=== PATIENT | female | born 1985 | race Caucasian/White ===

== ENCOUNTER 2016-05-12 14:38 | Emergency (ER) | payer MEDICAID ==
[~2016-05-12] VITALS: Wt 60.0 kg
[~2016-05-12 14:38] MED LIST: IBUP800T25 PO; LAB200 PO; PERCOCET PO; PREN1TAB49 PO
[2016-05-12] MEDS ORDERED: HYDROCHLOROTHIAZIDE 25 MG TAB PO ONE (18:00)
--- NOTE | 2016-05-12 18:35 | RADRPT ---
PROCEDURE: CT Brain without. CLINICAL INDICATION: Headache, hypertension. TECHNIQUE: A CT of the brain was performed on multidetector high-resolution CT scanner utilizing a xial sections from the skull base through the vertex without contrast. The scan was reviewed in sof t tissue brain and high frequency resolution bone algorithm windows. Images were reviewed on a high -resolution PACS workstation. One or more the following does reduction techniques were utilized: Aut omated exposure control, adjustment of the mA/ or kV according to patient's size, or use of iterativ e reconstruction technique. The exam CTDI = 39.64, 2.44 mGy and the DLP = 559.84 mGy-cm. COMPARISON: None available. FINDINGS: The ventricles and sulci are age-appropriate. There is no intracranial hemorrhage, mass effect or mi dline shift. No abnormal intra-axial or extra-axial fluid collections are seen. The smith/white amara er differentiation is preserved. No acute skull abnormality is noted. The visualized paranasal sinus es are essentially clear. IMPRESSION: 1. No acute intracranial hemorrhage, transcortical infarction or mass effect. RPTAT: AA .Carlos Sanders MD, MD Date Time Electronically viewed and signed by .Carlos Sanders MD, MD on 05/12/2016 18:35 .N/
[2016-05-12] MEDS ORDERED: HYD25 PO (19:03)
[2016-05-12] MEDS ORDERED: NAPR-260 PO (19:03)
[2016-05-12] MEDS ORDERED: LABE100T3 PO (19:03)
--- NOTE | 2016-05-12 19:07 | ERD ---
ER Documentation Chief Complaint Date/Time DATE: 05/12/16 TIME: 19:05 Chief Complaint HEADACHE FOR THE PAST DAY. HIGH BP, NO BP MEDS FOR 1 DAY. NO NEURO DEF HPI 31-year-old woman referred here by clinic for hypertension. Patient has a long history of hypertension and states she has been off of her antihypertensives for a few months. She has had a headache for about 1 week which she states she has been gradual onset and similar previous episodes. She denies any focal deficits, no paresis or paresthesias, no weakness in her arms or legs, no slurred speech, no blurry vision. Patient denies fevers or chills, no chest pain or shortness of breath. ROS All systems reviewed and are negative except as per history of present illness. Medications Home Meds Active Scripts Labetalol Hcl* (Labetalol Hcl*) 100 Mg Tablet, 100 MG PO BID, #60 TAB Prov:ASHLEY BARTHOLOMEW MD 05/12/16 Hydrochlorothiazide* (Hydrochlorothiazide*) 25 Mg Tab, 25 MG PO DAILY, #30 TAB Prov:ASHLEY BARTHOLOMEW MD 05/12/16 Naproxen* (Naprosyn*) 500 Mg Tablet, 500 MG PO BID Y for PAIN AND/OR INFLAMMATION, #30 TAB Prov:ASHLEY BARTHOLOMEW MD 05/12/16 Discontinued Reported Medications Vits W-Ca,Fe,Fa(<1MG) () 1 Tab Tablet, 1 TAB PO DAILY 02/19/12 Discontinued Scripts Oxycodone Hcl/Acetaminophen (Percocet) 1 Tab Tab, 2 TAB PO Q4H Y for PAIN LEVEL 6-10, #30 TAB 0 Refills Prov:VAL LOPEZ MD 08/21/15 Labetalol Hcl* (Normodyne*) 200 Mg Tab, 200 MG PO BID, #120 TAB 1 Refill Prov:VAL LOPEZ MD 08/21/15 Ibuprofen* (Ibuprofen*) 800 Mg Tablet, 800 MG PO Q8, #20 TAB 0 Refills Prov:VAL LOPEZ MD 08/21/15 Allergies Allergies: Coded Allergies: No Known Drug Allergies (Verified Allergy, Unknown, 05/12/16) PMhx/Soc Hypertension, medication noncompliance History of Surgery: Yes (c section x3) Anesthesia Reaction: No Hx Neurological Disorder: No Hx Respiratory Disorders: No Hx Cardiac Disorders: Yes (htn) Hx Psychiatric Problems: No Hx Miscellaneous Medical Probl: No Hx Alcohol Use: No Hx Substance Use: No Hx Tobacco Use: No Smoking Status: Never smoker FmHx Family History: No diabetes Physical Exam Vitals Vital Signs Date Time Temp Pulse Resp B/P Pulse Ox O2 Delivery O2 Flow Rate FiO2 05/12/16 20:00 98.5 72 20 154/98 99 Room Air 05/12/16 19:45 74 162/106 05/12/16 18:45 98.8 74 20 173/118 98 Room Air 05/12/16 14:48 98.1 82 21 188/111 98 Physical Exam GENERAL: Well-developed, well-nourished, well-hydrated, in no apparent distress , looks nontoxic in appearance HEENT: Moist mucous membranes, pink conjunctiva, no cervical spine tenderness or step-off deformities, no goiter, no jaundice or icterus, extraocular movements intact without pain. No submandibular induration, and no pharyngeal erythema NEURO: Alert and oriented 3, cranial nerves II through XII intact bilaterally, pupils equal round reactive to light, no focal deficits or facial asymmetry, sensation intact distally Strength 5/5 in upper and lower extremities bilaterally CARDIAC: Regular rate and rhythm, no murmurs rubs or gallops LUNGS: Clear bilaterally no wheezing crackles or stridor ABDOMEN: Soft nontender, no guarding, no rigidity, no rebound, no psoas sign no obturator sign. Normoactive bowel sounds SKIN: Warm and dry to touch, no abrasions, contusions, or hematomas, no lacerations, no ecchymosis, no target lesions, and without ulcers EXTREMITIES: No clubbing cyanosis or edema, calves are bilaterally symmetrical, no Homans sign, no popliteal cord sign. Distal pulses equal and bilateral PSYCH: Normal affect without agitation or irritability Results 24 hrs Laboratory Tests Test 05/12/16 19:00 Urine Bilirubin NEGATIVE Urine Clarity CLEAR Urine Color LT. YELLOW Urine Glucose NEGATIVE% Urine Hemoglobin NEGATIVE Urine Ketones NEGATIVE Urine Leukocyte Esterase NEGATIVE Urine Nitrite NEGATIVE Urine Specific Gore 1.020 Urine Total Protein NEGATIVE Urine Urobilinogen 0.2 E.U./dL Urine pH 6.0 Current Medications Medications (Trade) Dose Ordered Sig/Mc Route PRN Reason Start Time Stop Time Status Last Admin Dose Admin Clonidine (Catapres) 0.1 mg ONCE ONCE PO 05/12/16 18:00 05/12/16 18:01 DC 05/12/16 19:12 Hydrochlorothiazide (Hydrochlorothiazide) 25 mg ONCE ONCE PO 05/12/16 18:00 05/12/16 18:01 DC 05/12/16 19:12 Procedures/MDM I administered hydrochlorothiazide 25 mg p.o. and clonidine 0.1 mg p.o. with good effect. Urine test was negative, urine analysis has also been ordered results are pending I will follow-up if positive I will treat her as an outpatient with antibiotics. CT scan of the brain was performed that was negative for acute bleed mass or shift. Patient's headache has improved and she feels much better she will be discharged with prescription antihypertensives. Differential diagnoses considered, included but not limited to acute coronary syndrome, pulmonary embolism, aortic dissection, abdominal aortic aneurysm, sepsis, stroke, meningitis, encephalitis, pneumonia, appendicitis, cholecystitis , bowel obstruction, pyelonephritis, nephrolithiasis, cystitis, as well as metabolic, hematologic, and electrolyte abnormalities. As well as abscess, cellulitis, fractures, and dislocations. Patient feels much better at this time, and vital signs are normal, symptoms have improved. I did give strict instructions to return to the ED if symptoms continue or worsen, patient will otherwise follow-up with primary care physician. Patient understood instructions and agreed to plan. Departure Diagnosis: Primary Impression: Hypertension Hypertension type: essential hypertension Qualified Code: I10 - Essential hypertension Additional Impression: Headache Headache type: unspecified Headache chronicity pattern: acute headache Intractability: not intractable Qualified Code: R51 - Acute nonintractable headache, unspecified headache type Condition: Good Patient Instructions: Self-Care for Headaches, High Blood Pressure ( Hypertension) ASHLEY BARTHOLOMEW MD May 12, 2016 19:07
[2016-05-12 19:23] LABS: ADD UMIC NO; URINE BILIRUBIN (Dip) NEGATIVE (NEGATIVE); URINE BLOOD (Dip) NEGATIVE (NEGATIVE); URINE COLOR LT. YELLOW (YELLOW); URINE GLUCOSE (Dip) NEGATIVE (NEGATIVE); URINE KETONES (Dip) NEGATIVE (NEGATIVE); URINE LEUKOCYTE ESTERASE (Dip) NEGATIVE (NEGATIVE); URINE NITRITE (Dip) NEGATIVE (NEGATIVE); URINE TOTAL PROTEIN (Dip) NEGATIVE (NEGATIVE); URINE UROBILINOGEN (Dip) 0.2 E.U./dL (0.1-1.0)
[2016-05-12 20:00] VITALS: BP 154/98; PULSE 72; RESP 20; TEMP 98.5
== END 2016-05-12 20:01 | disposition home or self-care (01) ==
LOC: E/R 14:38
DX: I10 Essential (primary) hypertension (principal)
CPT/HCPCS: 70450; 81003; Z7502; Z7610